=== PATIENT | female | born 1970 | race African-American/Black ===

== ENCOUNTER → 2017-04-24 | Outpatient (CLI) | payer OTHER ==
[2017-04-24 09:27] LABS: HEMATOCRIT 35.9 % (37.0-47.0); HEMOGLOBIN 11.5 gm/dL (12.0-15.0); MCH 19.6 pg (26.0-34.0); MCHC 32.1 g/dL (28.0-37.0); MCV 61.2 fL (80.0-100.0); RBC 5.86 mil/uL (4.20-5.00); RDW 15.9 % (10.5-14.5); WBC 8.6 thou/uL (4.0-11.0)
[2017-04-24 09:28] LABS: URINE BILIRUBIN NEGATIVE (Negative); URINE BLOOD NEGATIVE (Negative); URINE COLOR YELLOW; URINE GLUCOSE-RANDOM* NEGATIVE (Negative); URINE KETONES NEGATIVE (Negative); URINE NITRITE NEGATIVE (Negative); URINE PROTEIN (DIPSTICK) NEGATIVE (Negative); URINE UROBILINOGEN 0.2 E.U./dl (0.2-1.0)
[2017-04-24 09:47] LABS: ALBUMIN 3.9 g/dL (3.4-5.0); ALKALINE PHOSPHATASE 71 U/L (46-116); ANION GAP 5 mmol/L (7-16); BUN 13 mg/dL (7-18); CALCIUM 8.6 mg/dL (8.5-10.1); CHLORIDE 103 mmol/L (98-107); CHOLESTEROL 100 mg/dL (<200); CO2 31 mmol/L (21-32); CREATININE 1.5 mg/dL (0.6-1.0); GLUCOSE 98 mg/dL (74-106); HDL CHOLESTEROL 49 mg/dL (>40); LDL CHOLESTEROL 43 mg/dL (<100); POTASSIUM 3.1 mmol/L (3.5-5.1); SGOT 27 U/L (15-37); SGPT 29 U/L (30-65); SODIUM 139 mmol/L (136-145); TOTAL BILIRUBIN 1.2 mg/dL (<0.1-1.0); TOTAL PROTEIN 7.6 g/dL (6.4-8.2); TRIGLYCERIDE 44 mg/dL (<150); VLDL 9 mg/dL (<40)
== END ==
LOC: LABMALL 08:34
PROVIDERS: Family Medicine
DX: Z00.01 Encounter for general adult medical examination with abnormal findings (principal); R79.89 Other specified abnormal findings of blood chemistry

== ENCOUNTER → 2017-05-27 | Outpatient (CLI) | payer OTHER | LOC: SLEEPLAB 12:56 | DX: G47.30 Sleep apnea, unspecified (principal) ==

== ENCOUNTER → 2018-08-26 | Outpatient (CLI) | payer OTHER ==
[~2018-08-26] VITALS: Ht 177.8 cm; Wt 122.5 kg
[~2018-08-26] MED LIST: ASPIR 8181 MG PO; COD LIVER OIL1 EACH PO; HAIR, SKIN & N1 EAC2 PO; LOSARTAN-HCTZ1 EAC1 PO; MAGOX 400400 MG PO; PRILOSEC 20 MG20 MG PO; SPIRONOLACTONE25 M1 PO; TOPROL XL100 MG PO
--- NOTE | 2018-08-26 11:12 | P ---
[facility] [place] [address] PROCEDURE REPORT Name: IWONAJAVIER Room #: REG MONICA Arreguin#: [id number] Admission: 08/26/18 Attend Phys: Joselito Mcneil Discharge: Date of : 72 Report #: [id number] THIS REPORT FOR: //name// CC: Joselito Cortes DO DATE OF SERVICE: 08/26/2018 PROCEDURE PERFORMED: Colonoscopy with polypectomy. HISTORY OF PRESENT ILLNESS: The patient is a 48-year-old male who reports intermittent bright red blood per rectum. This began in April. At that time, was on a daily basis for several weeks. Also, complaining of anal pain at that time, initially treated with Preparation-H without any improvement. Later received an ointment from Dr. Cortes, his primary physician and the pain resolved. He continues to have a small amount of bright red blood per rectum at times. No previous history of colonoscopy. No family history of colon cancer. He denies any diarrhea or constipation. DESCRIPTION OF PROCEDURE: The risks and benefits of the procedure were explained to the patient, those risks including but not limited to bleeding, perforation and the risk of sedation. He understood these risks and gave informed consent. Sedation was given using propofol per Anesthesia. Next, a digital rectal exam was initially performed, which was normal. Next, using a standard Olympus colonoscope, the scope was placed in the patient's anus and advanced under direct vision to the cecum. The overall prep was excellent. The cecum and ileocecal valve were normal in appearance. Ascending, transverse and descending colon were normal. In the sigmoid colon, there was a 6 mm partially pedunculated polyp. This was removed by snare cautery, otherwise normal. The rectal mucosa was normal. On retroflexion, no abnormalities were noted. Close examination of the anal canal shows a few small external hemorrhoids. No evidence of anal fissure at this time. No active bleeding. The scope was then withdrawn and the procedure terminated. The patient tolerated the procedure well. IMPRESSION: 1. Colonic polyp. 2. External hemorrhoids, likely source of intermittent bright red blood per rectum. 3. Otherwise, normal colonoscopy. RECOMMENDATIONS: 1. Await biopsy results. 2. If polyp is hyperplastic, repeat in 10 years; if adenomatous polyp, repeat in [address] [address] PROCEDURE REPORT Name: JAVIER BUSTILLO Room #: REG MONICA Arreguin#: [id number] Admission: 08/26/18 Attend Phys: Joselito Mcneil Discharge: Date of : 72 Report #: [id number] 3. I suspect the patient had an anal fissure based on his clinical presentation with anal pain several months ago. There is no evidence of fissure today; however, he does have external hemorrhoids, which continue to cause intermittent bleeding. Recommend high fiber diet and Analpram on a p.r.n. basis. Thank you for allowing me to participate in his care. <ELECTRONICALLY SIGNED> By: Joselito Conde MD 08/26/18 1112 1055 [id number] Joselito Conde MD /nt
--- NOTE | 2018-08-27 16:08 | PATH ---
[facility] [place] [address] PATHOLOGY RPT PROCEDURE Name: BALTAZAR BUSTILLO Room #: REG [facility] M.R.#: [id number] Admission: 08/26/18 Date of : 72 Discharge: Report #: [id number] Path Case #: [id number] [facility] Accession Number: [id number] . 01 Material submitted: . POLYP AT SIGMOID COLON . 01 Clinical history: . Blood in stool Colon polyp, hemorrhoids . 02 Diagnosis: Polyp, at sigmoid colon, endoscopic biopsy: - Tubular adenoma. - Negative for high grade dysplasia. . (IUV:mml; 08/27/2018) QL/08/27/2018 . 02 Electronically signed: . Yolette Cochran MD, Pathologist NPI- [id number] . 01 Gross description: . The specimen is received in formalin, labeled "Baltazar Bustillo, polyp at sigmoid colon" and consists of a polypoid segment of pink-boyce tissue measuring 0.5 x 0.4 x 0.3 cm. It is inked, bisected, and entirely submitted in A1. (SDY; 08/26/2018) SYU/SYU . 02 Pathologist provided ICD-10: D12.5 . 02 CPT . 724010 Specimen Comment: A courtesy copy of this report has been sent to Specimen Comment: [phone], . Specimen Comment: Report sent to and Performed at: [address], [place], [place] [id number] MD Taiwo Mcginnis MD Phone: [phone] Performed at: [address] [id number] MD Yolette Cochran MD Phone: [phone]
== END | disposition home or self-care (01) ==
LOC: EDSEX → GI 07:27
DX: D12.5 Benign neoplasm of sigmoid colon (principal); K64.4 Residual hemorrhoidal skin tags; K21.9 Gastro-esophageal reflux disease without esophagitis; I10 Essential (primary) hypertension; G47.30 Sleep apnea, unspecified; Z98.890 Other specified postprocedural states; Z79.899 Other long term (current) drug therapy; Z79.82 Long term (current) use of aspirin
CPT/HCPCS: 62110; 62900

== ENCOUNTER → 2018-11-18 | Outpatient (CLI) | payer OTHER ==
--- NOTE | 2018-11-26 08:08 | EXE ---
[facility] [place] [address] STRESS ECHOCARDIOGRAM Name: JAVIER BUSTILLO Room #: REG CL Rodríguez#: [id number] ������������� Admission: 11/18/18 ������������� Attend Phys: Albert Naik MD Discharge: ��� ������������� ��� Date of : 72 Date of Service: 11/18/18 1558 �� Report #: [id number] �������� ��������������������������������������������[id number] THIS REPORT FOR: //name// APPROVED REPORT Study performed: 11/18/2018 14:06:31 Exam: Stress Echocardiogram Indication: Palpitations , Hypertension Patient Location: Out-Patient Stress Nurse: Zulma Dumont RN Room #: Echo lab 2 Status: routine Ht: 5 ft 10 in HR: 79 bpm BP: 142/88 mmHg Rhythm: NSR Medical History Medical History: HTN Allergies: No known drug allergies Cardiac Risk Factors: HTN Exercise History: Physically active Procedure The patient underwent an Exercise Stress Test using the Layo Protocol. Blood pressure, heart rate, and EKG were monitored. An Echocardiogram was performed by instrument and control technician in four stages in quad fashion. At peak stress, four selected images were obtained and placed side by side with resting images for comparison. Stress Test Details Stress Test: Exercise stress testing was performed using a Layo protocol. HR Resting HR: 79 bpm Max Heart Rate (APMHR): 173 bpm Max HR Achieved: 176 bpm Target HR (85% APMHR): 147 bpm % of APMHR: 101 Recovery HR: 101 bpm HR response to stress: Normal HR response to stress BP Resting BP: 142/88 mmHg Max BP: 164/90 mmHg Recovery BP: 158/70 mmHg [facility] [address] [place] [address] STRESS ECHOCARDIOGRAM Name: DARIO BUSTILLOARO Room #: REG CL [facility].#: [id number] ������������� Admission: 11/18/18 ������������� Attend Phys: Albert Naik MD Discharge: ��� ������������� ��� Date of : 72 Date of Service: 11/18/18 1558 �� Report #: [id number] �������� ��������������������������������������������[id number] BP response to stress: Normal blood pressure response to stress. ECG Resting ECG: Sinus Rhythm Stress ECG: Sinus Tachycardia Arrhythmia: None Recovery ECG: Sinus Rhythm Clinical Reason for Termination: Maximal effort Exercise duration: 9 min 32 sec Highest Stage Achieved: Stage 4: 4.2 mph at 16% grade. Exercise capacity: 11.5 METs Stress ECG Conclusion 1. Subjectively negative for ischemia 2. Echocardiographically negative for ischemia 3. Satisfactory functional capacity Pre-Stress Echo The resting Echocardiogram showed normal left ventricular contractility with an estimated Ejection Fraction of about >55%. Post-Stress Echo The stress Echocardiogram showed normal left ventricular contractility with an estimated Ejection Fraction of about >70%. Clinical Normal augmentation of myocardial wall segments using a 17 segment model. Conclusion Clinical Response: Non-ischemic Exercise Capacity: Average Stress ECG Response: Non-ischemic Stress Echo Images: Non-ischemic 1. Low risk study No prior study available for comparison. Other Information Study Quality: Good [facility] [address] [place] [address] STRESS ECHOCARDIOGRAM Name: IWONAJAVIER Room #: REG CL M.R.#: [id number] ������������� Admission: 11/18/18 ������������� Attend Phys: Albert Naik MD Discharge: ��� ������������� ��� Date of : 72 Date of Service: 11/18/18 1558 �� Report #: [id number] �������� ��������������������������������������������[id number] <Conclusion> 1. Low risk study ��������������������������������������������� <ELECTRONICALLY SIGNED> ���������������������������������������� By: Torres Barger MD ��������������������������������������������� 11/18/18 1558 1558 155 Torres Barger MD /INF
== END ==
LOC: CV 10:18
DX: R00.2 Palpitations (principal); I10 Essential (primary) hypertension; Z87.898 Personal history of other specified conditions

== ENCOUNTER → 2020-10-04 | Outpatient (CLI) | payer OTHER ==
[2020-10-04 12:40] LABS: URINE BILIRUBIN NEGATIVE (Negative); URINE BLOOD NEGATIVE (Negative); URINE CLARITY CLEAR; URINE COLOR YELLOW; URINE GLUCOSE-RANDOM* NEGATIVE (Negative); URINE KETONES NEGATIVE (Negative); URINE LEUKOCYTES-REFLEX NEGATIVE (Negative); URINE NITRITE-REFLEX NEGATIVE (Negative); URINE PROTEIN (DIPSTICK) NEGATIVE (Negative); URINE SPECIFIC GRAVITY 1.025 (1.005-1.035); URINE UROBILINOGEN 0.2 E.U./dl (0.2-1.0)
[2020-10-04 12:50] LABS: ABSOLUTE NEUTROPHILS 5.8 thou/uL (1.4-8.2); BASOPHILS 1.4 % (0.0-2.0); EOSINOPHILS 3.9 % (0.0-3.0); HEMATOCRIT 38.8 % (42.0-52.0); HEMOGLOBIN 12.1 gm/dL (14.0-18.0); LYMPHOCYTES 23.8 % (24.0-44.0); MCH 19.7 pg (26.0-34.0); MCHC 31.1 g/dL (28.0-37.0); MCV 63.3 fL (80.0-100.0); MONOCYTES 7.5 % (1.0-8.0); PLATELET COUNT 241 thou/uL (150-400); POLYS 63.4 % (36.0-66.0); RBC 6.13 mil/uL (4.50-6.00); RDW 15.6 % (10.5-14.5); WBC 9.2 thou/uL (4.0-11.0)
[2020-10-04 13:04] LABS: ALBUMIN 4.3 g/dL (3.4-5.0); ANION GAP 8 mmol/L (7-16); BUN 21 mg/dL (7-18); CALCIUM 9.4 mg/dL (8.5-10.1); CHLORIDE 99 mmol/L (98-107); CO2 30 mmol/L (21-32); CREATININE 1.4 mg/dL (0.7-1.3); GLUCOSE 123 mg/dL (74-106); POTASSIUM 3.9 mmol/L (3.5-5.1); SGOT 22 U/L (15-37); SGPT 34 U/L (16-63); SODIUM 137 mmol/L (136-145); TOTAL BILIRUBIN 0.8 mg/dL (0.2-1.0); TOTAL PROTEIN 8.4 g/dL (6.4-8.2)
[2020-10-04 13:17] LABS: CHOLESTEROL 122 mg/dL (<200); HDL CHOLESTEROL 54 mg/dL (>40); LDL CHOLESTEROL 48 mg/dL (<100); TC:HDL 2.3 Ratio (Not establshd); TRIGLYCERIDE 101 mg/dL (<150); VLDL 20 mg/dL (<40)
[2020-10-04 13:43] LABS: ANISOCYTOSIS 1+; MICROCYTES 2+; PLATELET ESTIMATE NORMAL
[2020-10-05 03:06] LABS: GLYCOHEMOGLOBIN (HGB A1C) 6.1 % (4.8-5.6)
== END ==
LOC: LAB 11:42
PROVIDERS: ATTEND Family Medicine
DX: Z00.00 Encounter for general adult medical examination without abnormal findings (principal)

== ENCOUNTER → 2021-10-05 | Outpatient (CLI) | payer OTHER ==
[~2021-10-05] MED LIST changes: +SINGULAIR 10 MG10 M1 PO; +ST. JOSEPH ASPI81 M1 PO; +VALSARTAN-HCTZ1 EAC2 PO
== END ==
LOC: LAB 05:39
PROVIDERS: ATTEND Student in an Organized Health Care Education/Training Program
DX: Z01.812 Encounter for preprocedural laboratory examination (principal); Z20.822 Contact with and (suspected) exposure to COVID-19